=== PATIENT | male | born 1945 | race Hispanic/Latino ===

== ENCOUNTER 2016-08-21 17:37 | Emergency (ER) | payer MEDICARE | END 2016-08-21 18:10 | disposition left against medical advice (07) | LOC: ED 17:37 | DX: R06.00 Dyspnea, unspecified (principal); Z53.21 Procedure and treatment not carried out due to patient leaving prior to being seen by health care provider ==

== ENCOUNTER 2016-11-02 08:43 | Day surgery (SDC) | payer MEDICARE ==
[2016-11-02] MEDS ORDERED: NACL 0.9% 500 ML 500 ML ONE (09:08)
[2016-11-02] MEDS ORDERED: SUBLIMAZE IV ONE (09:26)
[2016-11-02] MEDS ORDERED: NACL 0.9% 500 ML 500 ML IV SCH (10:00)
[2016-11-02] MEDS ORDERED: HURRICAINE ONE 20% TOPICAL SPRAY MM NR (10:00)
[2016-11-02] MEDS ORDERED: VERSED IV ONE ×2 (10:10→10:15)
--- NOTE | 2016-11-02 11:39 | Short Stay Summary ---
Short Stay Documentation Date of service: 11/02/16 - History H&P: obtained from office - Allergies and Medications Current Medications: Allergies Penicillins Allergy (Verified 05/20/16 05:59) Swelling Home Medications Medication Instructions Recorded Confirmed Last Taken Type Atorvastatin [Lipitor] 40 mg PO QHS 03/31/13 11/02/16 11/01/16 History 40mg Furosemide [Furosemide] 40 mg PO QDAY 03/31/13 11/02/16 11/01/16 History 40mg Metoprolol [Lopressor] 25 mg PO BID 03/31/13 11/02/16 11/01/16 History 25mg Potassium Chloride [K-Dur] 20 meq PO QDAY 03/31/13 11/02/16 11/01/16 History 20meq Tamsulosin HCl [Tamsulosin HCl] 0.4 mg PO QDAY 03/31/13 11/02/16 11/01/16 History 0.4mg Omeprazole [Omeprazole] 40 mg PO DAILY 11/02/16 11/02/16 11/01/16 History 40mg Ranitidine HCl [Zantac 150 MG TAB] 300 mg PO HS 11/02/16 11/02/16 11/01/16 History 300mg Warfarin [Coumadin] 7.5 mg PO 5XW 11/02/16 11/02/16 10/31/16 History 7.5mg Warfarin [Coumadin] 10 mg PO QDAY 11/02/16 11/02/16 11/01/16 History 10mg traMADol [Ultram 50 MG tab] 50 mg PO HS 11/02/16 11/02/16 11/01/16 History 50mg Active Medications Sodium Chloride (Nacl 0.9% 500 Ml) 500 mls @ 50 mls/hr IV DIRECT JUDE - Physical exam General appearance: no acute distress Integumentary: no rash HEENT: Atraumatic Lungs: Clear to auscultation Breasts: deferred Heart: Regular rate Gastrointestinal: normal Male Genitourinary: deferred Female Genitourinary: deferred Rectal Exam: deferred Extremities: no ischemia Neurological: Normal gait - Brief post op/procedure progress note Date of procedure: 11/02/16 Pre-op diagnosis: CVA Post-op diagnosis: same Procedure: SRI Anesthesia: MAC Findings: See report Surgeon: ROBINSON POSADA Estimated blood loss: none Pathology: none Condition: stable - Hospital course Hospital course: Uneventful - Disposition Condition at discharge: Good Disposition: DISCHARGED TO HOME OR SELFCARE Short Stay Discharge Plan Activity: advance as tolerated Weight Bearing Status: Weight Bear as Tolerated Diet: low fat, low cholesterol, low salt
[2016-11-02 13:07] VITALS: BP 105/68
== END 2016-11-02 13:40 | disposition home or self-care (01) ==
LOC: ECHO 08:43 → OPU 08:43 → EDSTATUS 09:30 → OPU 13:40
PROVIDERS: ATTEND Internal Medicine Cardiovascular Disease
DX: I63.9 Cerebral infarction, unspecified (principal); I34.0 Nonrheumatic mitral (valve) insufficiency; I25.119 Atherosclerotic heart disease of native coronary artery with unspecified angina pectoris; I48.91 Unspecified atrial fibrillation; E11.9 Type 2 diabetes mellitus without complications; E78.5 Hyperlipidemia, unspecified; I10 Essential (primary) hypertension; Z88.0 Allergy status to penicillin; Z95.1 Presence of aortocoronary bypass graft; Z95.5 Presence of coronary angioplasty implant and graft; Z95.3 Presence of xenogenic heart valve; Z82.49 Family history of ischemic heart disease and other diseases of the circulatory system; Z83.49 Family history of other endocrine, nutritional and metabolic diseases; Z83.3 Family history of diabetes mellitus
CPT/HCPCS: 93312; 93320; 93325; J2250; J3010; J7040